=== PATIENT | female | born 1990 | race Caucasian/White ===

== ENCOUNTER 2016-05-30 10:30 | Emergency (ER) | payer OTHER ==
[2016-05-30 11:06] VITALS: BP 125/78
--- NOTE | 2016-05-30 11:52 | UC ---
Throat Pain/Nasal Jas HPI - HPI Summary HPI Summary: 26 female presents with complaints of sore throat that started on . Patient states her ears also feel full and she has some nasal congestion. Admits to an intermittent dry cough. She also has been experiencing some nausea but denies vomiting. Recent gallbladder surgery ~2 weeks ago. She denies difficulty breathing and chest pain. States her brother was diagnosed with strep and her son has impetigo. She tried taking ibuprofen for intermittent fever/chills and the pain which gives her some relief. She does not complain of a fever/chills today. - History of Current Complaint Chief Complaint: UCRespiratory Stated Complaint: SORE THROAT Time Seen by Provider: 05/30/16 11:08 Hx Obtained From: Patient Hx Last Menstrual Period: HASN'T HAD A PERIOD SINCE NOVEMBER 2014; RECENTLY HAD BABY ?: No Onset/Duration: Sudden Onset, Lasting Days Severity: Moderate Pain Intensity: 8 Pain Scale Used: 0-10 Numeric Cough: Nonproductive Associated Signs & Symptoms: Positive: Nasal Discharge, Fever - Allergies/Home Medications Allergies/Adverse Reactions: Allergies Allergy/AdvReac Type Severity Reaction Status Date / Time Bee Venom Allergy Hives Verified 05/30/16 11:01 PMH/Surg Hx/FS Hx/Imm Hx Previously Healthy: Yes Endocrine History Of: Denies: Diabetes, Thyroid Disease Cardiovascular History Of: Denies: Cardiac Disorders, Hypertension Respiratory History Of: Denies: COPD, Asthma GI/ History Of: Denies: Ulcer - Surgical History Surgical History: Yes Surgery Procedure, Year, and Place: jaw surgery for underbite as a teen. GALLBLADDER REMOVED - APR 2016 - Family History Known Family History: Positive: Hypertension - Social History Alcohol Use: None Substance Use Type: None Smoking Status (MU): Never Smoked Tobacco Review of Systems Constitutional: Fever, Chills, Fatigue Skin: Negative Eyes: Negative ENT: Sore Throat, Ear Ache, Nasal Discharge Respiratory: Cough Cardiovascular: Negative Gastrointestinal: Other - nausea however due to recent cholecystectomy Genitourinary: Negative Motor: Negative Neurovascular: Negative Musculoskeletal: Negative Neurological: Negative Psychological: Negative All Other Systems Reviewed And Are Negative: Yes Physical Exam Triage Information Reviewed: Yes Appearance: Well-Appearing, No Pain Distress, Well-Nourished Vital Signs: Initial Vital Signs Temp 97 F 05/30/16 11:02 Pulse 110 05/30/16 11:02 Resp 16 05/30/16 11:02 BP 125/78 05/30/16 11:02 Pulse Ox 98 05/30/16 11:02 tachycardia noted Vital Signs Reviewed: Yes Eyes: Positive: Conjunctiva Clear ENT: Positive: Hearing grossly normal, Pharyngeal erythema, Nasal congestion, TMs normal - very mild effusion behind TM b/l, Tonsillar swelling - worse on right side, Tonsillar exudate Dental Exam: Normal Neck: Positive: Supple, Nontender, No Lymphadenopathy Respiratory: Positive: Chest non-tender, Lungs clear, Normal breath sounds, No respiratory distress Cardiovascular: Positive: RRR, No Murmur, Pulses Normal, Brisk Capillary Refill , Tachycardia Abdominal Exam: Normal Abdomen Description: Positive: Nontender, Soft Bowel Sounds: Positive: Present Musculoskeletal Exam: Normal Neurological Exam: Normal Psychological Exam: Normal Skin Exam: Normal Throat Pain/Nasal Course/Dx - Course Course Of Treatment: rapid strep culture obtained and positive. patient will be prescribed antibiotic and told to continue tylenol/ibuprofen for fevers and pain. also instructed to keep away from baby as much as possible or to wear a mask as it is very contagious. - Differential Dx/Diagnosis Differential Diagnosis/HQI/PQRI: Influenza, Laryngitis, Otitis Media, Pharyngitis, Sinusitis, URI Provider Diagnoses: Streptococcal Pharyngitis Discharge - Discharge Plan Condition: Stable Disposition: HOME Prescriptions: Amoxicillin CAP* 500 mg PO Q12H #20 cap Patient Education Materials: Strep Throat (ED) Referrals: Kailee Mcgarry MD [Primary Care Provider] - Additional Instructions: Take medication as prescribed until all medication is gone even if symptoms improve. Use Saline Zenda or Rinses to help with nasal congestion. Chloraseptic Zenda helps to numb the throat and is sold over the counter. Drink plenty of fluids and get lots of rest. Take OTC Ibuprofen or Tylenol for pain/fevers. If symptoms worsen or are not improving in 3-5 days please return to or follow up with primary care doctor. Amoxicillin may cause a yeast infection if you develop symptoms of itchy or discharge please return for or use Monistat over the counter. Taking probiotics or eating yogurt while taking amoxicillin is also recommended.
== END 2016-05-30 11:56 | disposition home or self-care (01) ==
LOC: UCEAST 10:30
DX: J02.0 Streptococcal pharyngitis (principal); Z90.49 Acquired absence of other specified parts of digestive tract
CPT/HCPCS: 87651; 99212; G0463

== ENCOUNTER 2017-06-04 14:29 | Emergency (ER) | payer SELFPAY | END 2017-06-04 17:37 | disposition left against medical advice (07) | LOC: UCEAST 14:29 | DX: H57.8 Other specified disorders of eye and adnexa (principal); Z53.21 Procedure and treatment not carried out due to patient leaving prior to being seen by health care provider ==

== ENCOUNTER 2017-06-05 10:05 | Emergency (ER) | payer SELFPAY | END 2017-06-05 11:08 | disposition left against medical advice (07) | LOC: UCEAST 10:05 | DX: H57.8 Other specified disorders of eye and adnexa (principal); Z53.21 Procedure and treatment not carried out due to patient leaving prior to being seen by health care provider ==

== ENCOUNTER 2017-12-11 11:02 | Emergency (ER) | payer BC ==
[2017-12-11 11:46] VITALS: BP 109/74
--- NOTE | 2017-12-11 12:05 | UC ---
Respiratory Complaint HPI - HPI Summary HPI Summary: Pt presents with cough, chest congestion, chest tightness X 3 days. - History of Current Complaint Chief Complaint: UCRespiratory Stated Complaint: CONGESTION Time Seen by Provider: 12/11/17 11:57 Hx Obtained From: Patient Hx Last Menstrual Period: iud ?: No Onset/Duration: Sudden Onset, Lasting Days, Still Present Timing: Constant Severity Initially: Mild Severity Currently: Mild Pain Intensity: 3 Character: Cough: Nonproductive Aggravating Factors: Exertion, Deep Breaths, Recumbent Position Alleviating Factors: Nothing Associated Signs And Symptoms: Positive: URI, Nasal Congestion Related History: Seasonal Allergies - Risk Factors Pulmonary Embolism Risk Factors: Negative Cardiac Risk Factors: Negative Pseudomonas Risk Factors: Negative Tuberculosis Risk Factors: Negative - Allergies/Home Medications Allergies/Adverse Reactions: Allergies Allergy/AdvReac Type Severity Reaction Status Date / Time beeswax Allergy Hives Verified 12/11/17 11:47 PMH/Surg Hx/FS Hx/Imm Hx Previously Healthy: Yes - Surgical History Surgical History: Yes Surgery Procedure, Year, and Place: jaw surgery for underbite as a teen. GALLBLADDER REMOVED - APR 2016 - Family History Known Family History: Positive: Hypertension - Social History Occupation: Employed Full-time Lives: With Family Alcohol Use: None Substance Use Type: None Smoking Status (MU): Never Smoked Tobacco Have You Smoked in the Last Year: No Review of Systems Constitutional: Negative Skin: Negative Eyes: Negative ENT: Sinus Congestion Respiratory: Cough Cardiovascular: Negative Gastrointestinal: Negative Genitourinary: Negative Motor: Negative Neurovascular: Negative Musculoskeletal: Negative Neurological: Negative Psychological: Negative Is Patient Immunocompromised?: No All Other Systems Reviewed And Are Negative: Yes Physical Exam Triage Information Reviewed: Yes Appearance: Well-Appearing Vital Signs: Initial Vital Signs Temp 97 F 12/11/17 11:43 Pulse 88 12/11/17 11:43 Resp 20 12/11/17 11:43 BP 109/74 12/11/17 11:43 Pulse Ox 100 12/11/17 11:43 Vital Signs Reviewed: Yes Eye Exam: Normal ENT Exam: Other ENT: Positive: Nasal congestion Dental Exam: Normal Neck exam: Normal Respiratory: Positive: No respiratory distress Cardiovascular Exam: Normal Musculoskeletal Exam: Normal Neurological Exam: Normal Psychological Exam: Normal Skin Exam: Normal UC Diagnostic Evaluation - Laboratory O2 Sat by Pulse Oximetry: 100 Respiratory Course/Dx - Differential Dx/Diagnosis Differential Diagnosis/HQI/PQRI: Bronchitis, Other - allergic rhinitis Provider Diagnoses: reactive airway disease Discharge - Sign-Out/Discharge Documenting (check all that apply): Patient Departure - Discharge Plan Condition: Stable Disposition: HOME Prescriptions: Albuterol HFA INHALER* [Ventolin HFA Inhaler*] 1 - 2 puff INH Q4H PRN #1 mdi PRN Reason: Sob/Wheezing Benzonatate CAP* [Tessalon 100 MG CAP*] 100 mg PO Q8H PRN #30 cap PRN Reason: Cough predniSONE TAB* [Deltasone 20 MG TAB*] 20 mg PO DAILY #4 tab Patient Education Materials: Reactive Airways Disease (ED) Referrals: Kailee Mcgarry MD [Primary Care Provider] - If Needed - Billing Disposition and Condition Condition: STABLE Disposition: Home Attestation Statement User Type: Provider - I was available for consult. This patient was seen by the LEONCIO. The patient was not presented to, seen by, or examined by me. -[place]
== END 2017-12-11 12:10 | disposition home or self-care (01) ==
LOC: UCEAST 11:02
DX: J45.909 Unspecified asthma, uncomplicated (principal)
CPT/HCPCS: 99211; G0463

== ENCOUNTER 2018-07-19 09:40 | Emergency (ER) | payer BC ==
--- NOTE | 2018-07-19 09:50 | UC ---
Throat Pain/Nasal Jas HPI - HPI Summary HPI Summary: 28 yo female presents with sore throat since last night. She tells me that she recently found out her young son is a carrier for strep and last night pt developed a sore throat. She has not taken anything OTC for her symptoms. She is eating and drinking well. Denies fever, chills, sinus symptoms, cough, rash. - History of Current Complaint Stated Complaint: SORE THROAT PAIN INTO EAR COUGH Time Seen by Provider: 07/19/18 09:50 Hx Obtained From: Patient Hx Last Menstrual Period: iud Onset/Duration: Sudden Onset Severity: Moderate Pain Intensity: 5 Pain Scale Used: 0-10 Numeric - Allergies/Home Medications Allergies/Adverse Reactions: Allergies Allergy/AdvReac Type Severity Reaction Status Date / Time beeswax Allergy Hives Verified 07/19/18 09:51 Home Medications: Home Medications Etonogestrel [Nexplanon] 68 mg IMPLANT 07/19/18 [History] FLUoxetine CAP* [PROzac CAP*] 20 mg PO DAILY 07/19/18 [History Confirmed ] PMH/Surg Hx/FS Hx/Imm Hx Psychological History: Anxiety, Depression - Surgical History Surgical History: Yes Surgery Procedure, Year, and Place: jaw surgery for underbite as a teen. GALLBLADDER REMOVED - APR 2016 - Family History Known Family History: Positive: Hypertension - Social History Occupation: Employed Full-time Lives: With Family Alcohol Use: None Substance Use Type: None Smoking Status (MU): Never Smoked Tobacco Have You Smoked in the Last Year: No Review of Systems All Other Systems Reviewed And Are Negative: Yes Constitutional: Positive: Negative Skin: Positive: Negative Eyes: Positive: Negative ENT: Positive: Sore Throat Respiratory: Positive: Negative Cardiovascular: Positive: Negative Gastrointestinal: Positive: Negative Neurovascular: Positive: Negative Neurological: Positive: Negative Psychological: Positive: Negative Physical Exam - Summary Physical Exam Summary: GENERAL: NAD. WDWN. No pain distress. SKIN: No rashes, sores, lesions, or open wounds. HEENT: Head: AT/NC Eyes: EOM intact. Conjunctiva clear without inflammation or discharge. Ears: Hearing grossly normal. TMs intact, no bulging, erythema, or edema. Nose: Nasal mucosa pink and moist. NTTP maxillary and frontal sinus. Throat: Posterior oropharynx with mild erythema. No exudates or tonsillar enlargement. Uvula midline. NECK: Supple. Nontender. No lymphadenopathy. CHEST: CTAB. No r/r/w. No accessory muscle use. Breathing comfortably and in no distress. CV: RRR. Without m/r/g. Pulses intact. Cap refill <2seconds NEURO: Alert. PSYCH: Age appropriate behavior. Triage Information Reviewed: Yes Vital Signs: Vital Signs: Temp Pulse Resp BP Pulse Ox 97.4 F 85 16 123/72 98 07/19/18 09:46 07/19/18 09:46 07/19/18 09:46 07/19/18 09:46 07/19/18 09:46 Laboratory Tests 07/19/18 10:09 Group A Strep Rapid Negative Vital Signs Reviewed: Yes Throat Pain/Nasal Course/Dx - Course Course Of Treatment: POC strep negative. Suspect viral illness. Advised to try tylenol/ibuprofen for discomfort and f/u if symptoms do not improve. - Differential Dx/Diagnosis Provider Diagnosis: Sore throat Discharge - Sign-Out/Discharge Documenting (check all that apply): Patient Departure All imaging exams completed and their final reports reviewed: No Studies - Discharge Plan Condition: Stable Disposition: HOME Patient Education Materials: Pharyngitis (ED) Referrals: Lanette Liu MD [Primary Care Provider] - Additional Instructions: If you develop a fever, shortness of breath, chest pain, new or worsening symptoms - please call your PCP or go to the ED. Your strep test was negative today and your exam showed a mild irritated throat , but was otherwise normal. I suspect your symptoms are likely viral and will improve in a few days. If they do not, please be rechecked. - Billing Disposition and Condition Condition: STABLE Disposition: Home
[2018-07-19 09:51] VITALS: BP 123/72
== END 2018-07-19 10:26 | disposition home or self-care (01) ==
LOC: UCEAST 09:40
DX: J02.9 Acute pharyngitis, unspecified (principal); F32.9 Major depressive disorder, single episode, unspecified; Z79.899 Other long term (current) drug therapy
CPT/HCPCS: 87651; 99211; G0463

== ENCOUNTER 2018-10-14 07:36 | Emergency (ER) | payer BC ==
[2018-10-14 07:47] VITALS: BP 111/78
--- NOTE | 2018-10-14 10:17 | UC ---
Dental HPI - HPI Summary HPI Summary: PATIENT COMES IN WITH OVER ONE WEEK OF WORSENING RIGHT LOWER DENTAL PAIN. HAS JUST COMPLETED A COURSE OF AMOXICILLIN PRESCRIBED BY HER DENTIST FOR A NECROTIC TOOTH. STATES SHE WAS ADVISED TO HAVE THE TOOTH EITHER ROOT CANALED OR EXTRACTED HOWEVER HAS BEEN UNABLE TO GATHER THE FUNDS FOR THIS PROCEDURE. IS CURRENTLY WAITING TO HEAR FROM HER INSURANCE COMPANY ABOUT [id number] COST. NO FEVER. IBUPROFEN NOT HELPING. - History of Current Complaint Chief Complaint: UCDentalProblem Stated Complaint: DENTAL Time Seen by Provider: 10/14/18 08:16 Hx Obtained From: Patient Hx Last Menstrual Period: 2 weeks ago Onset/Duration: Gradual Onset, Lasting Weeks, Still Present Severity: Severe Pain Intensity: 10 Pain Scale Used: 0-10 Numeric Aggravating Factor(s): Heat, Cold, Chewing Alleviating Factor(s): Nothing - Allergies/Home Medications Allergies/Adverse Reactions: Allergies Allergy/AdvReac Type Severity Reaction Status Date / Time bee venom protein (honey bee) Allergy Hives Verified 10/14/18 07:48 Home Medications: Home Medications Ibuprofen TAB* [Advil TAB*] 800 mg PO TID PRN 10/14/18 [History Confirmed ] [place] 10/14/18 [History] PMH/Surg Hx/FS Hx/Imm Hx Previously Healthy: Yes - Surgical History Surgical History: Yes Surgery Procedure, Year, and Place: jaw surgery for underbite as a teen. GALLBLADDER REMOVED - APR 2016 - Family History Known Family History: Positive: Hypertension - Social History Alcohol Use: Weekly Substance Use Type: None Smoking Status (MU): Never Smoked Tobacco Have You Smoked in the Last Year: No Review of Systems All Other Systems Reviewed And Are Negative: Yes Constitutional: Positive: Negative Skin: Positive: Negative ENT: Positive: Dental Pain Respiratory: Positive: Negative Cardiovascular: Positive: Negative Gastrointestinal: Positive: Negative Physical Exam Triage Information Reviewed: Yes Appearance: Well-Appearing, No Pain Distress, Well-Nourished Vital Signs: Initial Vital Signs Temp 98 F 10/14/18 07:41 Pulse 80 10/14/18 07:41 Resp 16 10/14/18 07:41 BP 111/78 10/14/18 07:41 Pulse Ox 98 10/14/18 07:41 Vital Signs Reviewed: Yes Eyes: Positive: Conjunctiva Clear ENT: Positive: Hearing grossly normal, Pharynx normal Dental: Positive: Abscess @ - #31 (RIGHT LOWER SECOND MOLAR) Neck: Positive: Supple Respiratory: Positive: No respiratory distress, No accessory muscle use Cardiovascular: Positive: Pulses Normal Abdomen Description: Positive: Soft Musculoskeletal: Positive: No Edema Neurological: Positive: Alert Psychological: Positive: Age Appropriate Behavior Skin: Negative: Rashes Dental Complaint Course/Dx - Course Course Of Treatment: I CALLED PATIENT'S DENTAL OFFICE IN [place] AND SPOKE TO HER DENTIST DR. NORMAN. SHE ADVISED ME THAT THE PATIENT'S TOOTH WAS NECROTIC AND WOULD BE BETTER SERVED TO BE EXTRACTED. SHE STATES THEIR OFFICE DOES NOT HAVE ANY EMERGENCY OPENINGS AVAILABLE UNTIL THE END OF OCTOBER. SHE OFFERED TO HAVE HER OFFICE ASSIST THE PATIENT IN SCHEDULING AN APPOINTMENT WITH A LOCAL ORAL SURGEON. PATIENT WAS ADVISED TO CALL HER DENTIST OFFICE TODAY TO HELP ORGANIZE THIS. WILL COVER WITH A SECOND ROUND OF ANTIBIOTICS CLINDAMYCIN. HAVE ALSO GIVEN PERIDEX MOUTH RINSE AND HYDROCODONE. PATIENT ADVISED TO CONTINUE WITH IBUPROFEN DURING THE DAY AND USE HYDROCODONE AT NIGHT TIME OR FOR BREAKTHROUGH. - Differential Dx/Diagnosis Provider Diagnosis: Dental abscess Discharge - Sign-Out/Discharge Documenting (check all that apply): Patient Departure All imaging exams completed and their final reports reviewed: No Studies - Discharge Plan Condition: Stable Disposition: HOME Prescriptions: Chlorhexidine MW 0.12% 473ML* [Peridex Mouth Wash 0.12%*] 15 ml SWISH SPIT BID # 1 bottle Clindamycin HCl 300 mg PO QID #40 capsule HYDROcodone/ACETAMIN 5-325 MG* [[place] 5-325 TAB*] 1 tab PO Q6H PRN #12 tab MDD 4 PRN Reason: Pain Patient Education Materials: Dental Abscess (ED) Referrals: Lanette Liu MD [Primary Care Provider] - If Needed Additional Instructions: YOU HAVE A NECROTIC TOOTH AND ABSCESS. WILL GIVE A SECOND ROUND OF ANTIBIOTICS, HOWEVER YOU MUST FOLLOW-UP WITH AN ORAL SURGEON TO HAVE THE TOOTH EXTRACTED. I SPOKE WITH YOUR DENTIST DR. LISA NORMAN. SHE ADVISED THAT YOU CALL HER OFFICE TODAY AND THEY WILL ASSIST YOU IN SCHEDULING AN APPT WITH A LOCAL ORAL SURGEON. [facility] [phone] TAKE THE ANTIBIOTICS FOR THE FULL COURSE. RINSE YOUR MOUTH WITH WATER AFTER EATING OR DRINKING ANYTHING. ANTISEPTIC MOUTH RINSE TWICE DAILY. OTC MEDS NEEDED FOR DISCOMFORT. HYDROCODONE AT NIGHT TIME. IBUPROFEN MAX DOSE: 600MG (3 TABS) EVERY 6 HRS OR 800MG (4 TABS) EVERY 8 HRS OR NAPROXEN MAX DOSE: 440MG (2 TABS) EVERY 12 HRS TYLENOL MAX DOSE: 1000MG (2 EXTRA STRENGTH TABS) EVERY 8 HRS OR 650MG (2 REGULAR TABS) EVERY 6 HRS - Billing Disposition and Condition Condition: STABLE Disposition: Home
== END 2018-10-14 09:08 | disposition home or self-care (01) ==
LOC: UCEAST 07:36
DX: K04.7 Periapical abscess without sinus (principal)
CPT/HCPCS: 99212; G0463

== ENCOUNTER 2022-03-25 08:20 | Inpatient (IN) ==
[2022-03-25] MEDS ORDERED: Buffered Lidocaine 1% SYRIN 1 ml INTRADERM ONE (09:40)
[2022-03-25] MEDS ORDERED: Lactated Ringers 1000 ml BAG 1,000 ML IV ONE ×2 (09:40→15:45)
[2022-03-25] MEDS ORDERED: Oxytocin in LR 20,000 MILLI.UNIT/1,000 ML BAG IV SCH ×2 (09:45→19:30)
[2022-03-25] MEDS ORDERED: Lactated Ringers 1000 ml BAG 1,000 ML IV SCH ×3 (10:00→20:00)
[2022-03-25 11:06] LABS: ABS Eosinophils 0.1 10^3/ul (0-0.6); ABS Lymphocytes 1.2 10^3/ul (1.0-4.8); ABS Monocytes 0.4 10^3/ul (0-0.8); ABS Neutrophils 4.8 10^3/ul (1.5-7.7); Hematocrit 34 % (35-47); Hemoglobin 11.6 g/dL (12.0-16.0); Lymphocyte % 18.1 %; Mean Corpuscular HGB Conc 34 g/dL (31-36); Mean Corpuscular Hemoglobin 29 pg (27-31); Mean Corpuscular Volume 85 fL (80-97); Mean Platelet Volume 8.3 fL (7.4-10.4); Platelet Count 163 10^3/uL (150-450); Red Blood Count 4.03 10^6 /uL (3.70-4.87); Red Cell Distribution Width 14 % (10-15); White Blood Count 6.5 10^3/uL (3.5-10.8)
[2022-03-25 11:32] LABS: Urine Benzodiazepine Screen None Detected (None Detect); Urine Cannabinoids Screen None Detected (None Detect); Urine Opiates Screen None Detected (None Detect)
[2022-03-25] MEDS ORDERED: OBEPIDURAL (200 ML) 200 ML EPIDURAL ONE (14:54)
[2022-03-25] MEDS ORDERED: EPINEPHrine SULFITE FREE 1 MG/ML ONE (14:57)
[2022-03-25] MEDS ORDERED: Sodium Citrate/Citric Acid LIQ 15 ML UDC PO PRN (15:45)
[2022-03-25] MEDS ORDERED: Lactated Ringers 1000 ml BAG 500 ML IV PRN ×2 (15:45)
[2022-03-25] MEDS ORDERED: Phenylephrine 40 mcg/mL 10mL (400mcg) SYRINGE IV PUSH PRN ×2 (15:45)
[2022-03-25] MEDS ORDERED: OBEPIDURAL (200 ML) 200 ML EPIDURAL SCH (16:00)
[2022-03-25 16:32] LABS: Urine Appearance Cloudy; Urine Bilirubin Negative (Negative); Urine Blood 3+ (Negative); Urine Color Straw; Urine Glucose Negative (Negative); Urine Ketones Negative (Negative); Urine Nitrite Negative (Negative); Urine Protein Negative (Negative); Urine Urobilinogen Negative (Negative)
[2022-03-25 16:38] LABS: Urine Bacteria 1+ (Absent); Urine Red Blood Cell 3+(>10/hpf) (Absent); Urine Squamous Epithelial Cell Present (Absent); Urine White Blood Cell Trace(0-5/hpf) (Absent)
[2022-03-25] MEDS: Lidocaine 1% VIAL 10 MG/ML VIAL 30 ML ONE ×2 (18:10→19:18)
[2022-03-25] MEDS ORDERED: Glycerin ADULT 2.4 gm SUPP PR PRN (19:23)
[2022-03-25] MEDS ORDERED: Dibucaine 1% OINT 28.35 GM TUBE PR PRN (19:23)
[2022-03-25] MEDS ORDERED: Witch Hazel PAD JAR TOPICAL PRN (19:23)
[2022-03-25] MEDS ORDERED: Lidocaine 1% VIAL 10 MG/ML VIAL 30 ML ONE (22:30)
[2022-03-26 06:48] LABS: ABS Eosinophils 0.2 10^3/ul (0-0.6); ABS Lymphocytes 1.5 10^3/ul (1.0-4.8); ABS Monocytes 0.9 10^3/ul (0-0.8); ABS Neutrophils 9.2 10^3/ul (1.5-7.7); Eosinophil % 1.4 %; Hematocrit 33 % (35-47); Hemoglobin 11.3 g/dL (12.0-16.0); Lymphocyte % 12.7 %; Mean Corpuscular HGB Conc 34 g/dL (31-36); Mean Corpuscular Hemoglobin 30 pg (27-31); Mean Corpuscular Volume 86 fL (80-97); Mean Platelet Volume 8.4 fL (7.4-10.4); Platelet Count 154 10^3/uL (150-450); Red Blood Count 3.83 10^6 /uL (3.70-4.87); Red Cell Distribution Width 13 % (10-15); White Blood Count 11.9 10^3/uL (3.5-10.8)
[2022-03-26 17:08] VITALS: BP 121/75
== END 2022-03-26 20:25 | disposition home or self-care (01) | DRG 560 ==
LOC: MCHOBOUT 08:20 → MCHOB 09:19
PROVIDERS: ADMIT Midwife; ATTEND Midwife

== ENCOUNTER 2024-01-28 13:43 | Inpatient (IN) ==
[2024-01-28] MEDS ORDERED: Lidocaine 1% VIAL 10 MG/ML 30 ML VIAL INJ PRN (14:06)
[2024-01-28] MEDS ORDERED: Prochlorperazine 5 mg/ml 2 ml VIAL (10 mg) IV PRN (14:06)
[2024-01-28] MEDS ORDERED: Nalbuphine 10 MG/ML 1 ML VIAL IV PRN (14:06)
[2024-01-28] MEDS: miSOPROStol 100 mcg TAB PO ONE (14:49)
[2024-01-28] MEDS: Lactated Ringers 1000 ml BAG 1,000 ML IV ONE (15:14)
[2024-01-28 15:37] LABS: ABS Eosinophils 0.1 10^3/uL (0.0-0.5); ABS Lymphocytes 1.4 10^3/uL (1.0-4.8); ABS Monocytes 0.4 10^3/uL (0.0-0.9); ABS Nucleated RBC 0.01 10^3/ul; Eosinophil % 1.2 %; Hematocrit 30.5 % (35-45); Hemoglobin 10.1 g/dL (11.5-14.3); Lymphocyte % 20.2 %; Mean Corpuscular Hemoglobin 26.6 pg (27-33); Mean Corpuscular Hgb Conc 33.2 g/dL (31-36); Mean Corpuscular Volume 80.1 fL (80-97); Mean Platelet Volume 8.5 fL (7.5-11.2); Nucleated Red Blood Cells % 0.1 %/100WBC (0.0-0.8); Platelet Count 180 10^3/uL (150-450); Red Blood Count 3.81 10^6/uL (3.63-4.92); Red Cell Distribution Width 14.5 % (12-17); White Blood Count 6.8 10^3/uL (3.8-11.8)
[2024-01-28 16:06] LABS: Urine Benzodiazepine Screen None Detected (None Detect); Urine Cannabinoids Screen None Detected (None Detect); Urine Opiates Screen None Detected (None Detect)
[2024-01-28] MEDS: Lactated Ringers 1000 ml BAG 1,000 ML IV SCH ×2 (16:49→23:50)
[2024-01-28] MEDS: Oxytocin in LR 20,000 MILLI.UNIT/1,000 ML BAG IV SCH (19:52)
[2024-01-28] MEDS: OBEPIDURAL (200 ML) 200 ML EPIDURAL SCH (23:50)
[2024-01-29] MEDS: Buffered Lidocaine 1% SYRIN 1 ml INTRADERM ONE (00:03)
[2024-01-29] MEDS ORDERED: Phenylephrine 40 mcg/mL 10mL (400mcg) SYRINGE IV PUSH PRN ×2 (00:06)
[2024-01-29] MEDS ORDERED: Sodium Citrate/Citric Acid LIQ 15 ML UDC PO PRN (00:06)
[2024-01-29 00:50] LABS: Urine Appearance Clear; Urine Bilirubin Negative (Negative); Urine Blood 1+ (Negative); Urine Color Colorless; Urine Glucose Negative (Negative); Urine Ketones Negative (Negative); Urine Nitrite Negative (Negative); Urine Protein Negative (Negative); Urine Specific Gravity 1.003 (1.002-1.030); Urine Urobilinogen Negative (Negative)
[2024-01-29 00:51] LABS: Urine Bacteria Absent /HPF (Absent); Urine Red Blood Cell Trace(0-2/hpf) /HPF (0-Trace); Urine White Blood Cell Absent /HPF (0-Trace)
[2024-01-29] MEDS ORDERED: Glycerin ADULT 2.4 gm SUPP PR PRN (03:48)
[2024-01-29] MEDS ORDERED: Lactated Ringers 1000 ml BAG 1,000 ML IV SCH (04:00)
[2024-01-29] MEDS: Witch Hazel PAD JAR TOPICAL PRN (04:50)
[2024-01-29] MEDS: Dibucaine 1% OINT 28.35 GM TUBE PR PRN (04:50)
[2024-01-29] MEDS: Phenylephrine 40 mcg/mL 10mL (400mcg) SYRINGE ONE (05:10)
[2024-01-29] MEDS: OBEPIDURAL (200 ML) 200 ML EPIDURAL ONE (07:27)
[2024-01-29] MEDS: Lidocaine 1.5% EPI 1:200,000 30 ML SDV ONE (07:27)
[2024-01-29] MEDS: Oxytocin in LR 20,000 MILLI.UNIT/1,000 ML BAG IV SCH (07:30)
[2024-01-29] MEDS: Lactated Ringers 1000 ml BAG 1,000 ML IV ONE (07:30)
[2024-01-30 08:06] LABS: ABS Eosinophils 0.1 10^3/uL (0.0-0.5); ABS Lymphocytes 1.4 10^3/uL (1.0-4.8); ABS Monocytes 0.5 10^3/uL (0.0-0.9); ABS Neutrophils 5.5 10^3/uL (1.5-7.6); Eosinophil % 1.9 %; Hematocrit 29.7 % (35-45); Hemoglobin 10.1 g/dL (11.5-14.3); Lymphocyte % 18.8 %; Mean Corpuscular Hemoglobin 27.2 pg (27-33); Mean Corpuscular Hgb Conc 33.9 g/dL (31-36); Mean Corpuscular Volume 80.2 fL (80-97); Mean Platelet Volume 8.6 fL (7.5-11.2); Nucleated Red Blood Cells % 0.1 %/100WBC (0.0-0.8); Platelet Count 143 10^3/uL (150-450); Red Blood Count 3.71 10^6/uL (3.63-4.92); Red Cell Distribution Width 14.5 % (12-17); White Blood Count 7.6 10^3/uL (3.8-11.8)
[2024-01-30 08:11] VITALS: BP 113/68
[2024-01-30] MEDS: Tetan/Diph/Pertus SYR(Tdap) 0.5 ML SYR(BOOSTRIX) use SYR contains LATEX IM ONE (10:34)
== END 2024-01-30 13:22 | disposition home or self-care (01) | DRG 560 ==
LOC: MCHOBOUT 13:43 → MCHOB 13:51
PROVIDERS: ADMIT Advanced Practice Midwife; ATTEND Advanced Practice Midwife